=== PATIENT | female | born 1990 | race African-American/Black ===

== ENCOUNTER 2024-11-13 20:56 | Emergency (ER) | payer BC ==
[2024-11-13] MEDS ORDERED: NA CHLORIDE 0.9% 2,000 ML ONE (21:46)
[2024-11-13] MEDS ORDERED: ONDANSETRON 4 MG/2 ML VIAL ONE (21:47)
[2024-11-13] MEDS ORDERED: ACETAMINOPHEN 500 MG TAB ONE (21:47)
[2024-11-13] MEDS ORDERED: KETOROLAC 30 MG/ML INJ ONE (21:47)
[2024-11-13] MEDS ORDERED: FAMOTIDINE 20 MG/2 ML VIAL IV ONE (21:48)
--- NOTE | 2024-11-13 22:00 | RAD REPORT ---
EXAM: Chest Single View HISTORY: 34 years Female FEVER COMPARISON: No prior exams FINDINGS: LUNGS/PLEURA: The lungs are clear. No pleural effusions or pneumothorax. No pulmonary edema. CARDIAC/MEDIASTINUM: The cardiac silhouette is within normal limits. UPPER ABDOMEN: No significant abnormality. BONES: No acute abnormality. LINES/TUBES/OTHER: N/A IMPRESSION: No evidence of acute cardiopulmonary disease.
[2024-11-13 22:29] LABS: Absolute Lymphocytes (CBC) 0.2 K/uL (0.7-4.9); Hematocrit 33.0 % (36.0-45.0); Hemoglobin 10.5 g/dL (12.0-15.0); MCH 22.3 pg (27.0-35.0); MCHC 31.9 g/dL (32.0-36.0); MCV 69.9 fL (80-100); MPV 7.7 fL (7.6-11.3); Nucleated RBC Absolute Count 0.0 (0-0); Nucleated Red Blood Cells % 0.1 % (0-0); RBC Red Blood Cell Count 4.72 M/uL (3.86-4.86); White Blood Count 3.00 thou/uL (4.3-10.9)
[2024-11-13 22:36] LABS: Sqamous Epithelial <5 /HPF (None Seen); Urine Culture Reflex Order NOT NEEDED; Urine Microscopic Reflex YN ORDER UMIC
[2024-11-13 22:45] LABS: Influenza A Ag Negative; Influenza B Ag Negative; SARS-CoV-2 Antigen Rapid Res Negative (Negative)
[2024-11-13 22:47] LABS: ALT/SGPT 24.0 U/L (13-56); AST/SGOT 11.0 U/L (15-37); Albumin 3.6 g/dL (3.4-5.0); Albumin/Globulin Ratio 1.1 (1.1-1.8); Alkaline Phosphatase 71.0 U/L (45-117); Anion Gap 9.7 mEq/L (5.0-15.0); BUN Blood Urea Nitrogen 10.0 mg/dL (7-18); Globulin 3.4 g/dL (2.3-3.5); Glucose Level 107.0 mg/dL (74-106); Lipase 40.0 U/L (13-75); Potassium 3.7 mEq/L (3.5-5.1)
--- NOTE | 2024-11-13 23:51 | EDPHYS ---
Physician Documentation [facility] Name: Amanda Schulte Age: 34 yrs Sex: Female : 1990 Arrival Date: 11/13/2024 Time: 20:56 Bed 6 Private MD: ED Physician Antonio Barnett HPI: 11/13 23:49 This 34 yrs old Black Female presents to ER via Ambulatory with complaints of Headache, sp4 BODYACHES, Leg Pain. 11/14 19:57 Patient presents with complaint of bodyaches, fever, feeling unwell, generalized sp4 weakness. 19:57 Reports associated headache.. 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 - Infectious Disease History:: Denies. - Social history:: Smoking status: Patient denies any tobacco usage or history of. Patient/guardian denies using alcohol, street drugs. - Family history:: not pertinent. ROS: 11/14 19:57 Constitutional: Positive for fever, chills, positive body aches, positive for sp4 generalized weakness and fatigue., Positive for headache All other systems are negative, Exam: 19:57 Constitutional: This is a well developed, well nourished patient who is awake, alert, sp4 and in no acute distress. Head/Face: Normocephalic, atraumatic. Eyes: Pupils equal round and reactive to light, extra-ocular motions intact. Lids and lashes normal. Conjunctiva and sclera are not injected. Cornea within normal limits. Periorbital areas with no swelling, redness, or edema. ENT: Nares patent. No nasal discharge, no septal abnormalities noted. Tympanic membranes are normal and external auditory canals are clear. Oropharynx with no redness, swelling, or masses, exudates, or evidence of obstruction, uvula midline. Mucous membranes moist. Neck: Trachea midline, no thyromegaly or masses palpated, and no cervical lymphadenopathy. Supple, full range of motion without nuchal rigidity, or vertebral point tenderness. Chest/axilla: Normal chest wall appearance and motion. Nontender with no deformity. No lesions are appreciated. Cardiovascular: Regular rate and rhythm with a normal S1 and S2. No gallops, murmurs, or rubs. No pulse deficits. Respiratory: Lungs have equal breath sounds bilaterally, clear to auscultation and percussion. No rales, rhonchi or wheezes noted. No increased work of breathing, no retractions or nasal flaring. Abdomen/GI: Soft, with normal bowel sounds. No distension or tympany. No guarding or rebound. No evidence of tenderness throughout. Back: No spinal tenderness. No costovertebral tenderness. Skin: Warm, dry with normal turgor. Normal color with no rashes, no lesions, and no evidence of cellulitis. MS/ Extremity: Pulses equal, no cyanosis. Neurovascular intact. Full, normal range of motion. Neuro: Awake and alert, GCS 15, oriented to person, place, time, and situation. Cranial nerves II-XII grossly intact. Motor strength 5/5 in all extremities. Sensory grossly intact. Psych: Awake, alert, with orientation to person, place and time. Behavior, mood, and affect are within normal limits Vital Signs: 11/13 21:18 BP 129 / 89; Pulse 111; Resp 17 S; Temp 102.6(O); Pulse Ox 99% on R/A; Weight 104.33 kg lg3 (R); Height 5 ft. 4 in. (R); 22:02 BP 129 / 85; Pulse 98; Resp 19; Pulse Ox 100% on R/A; kd3 23:30 BP 120 / 77; Pulse 80; Resp 16; Pulse Ox 98% on R/A; cc6 21:18 Body Mass Index 39.48 (104.33 kg, 162.56 cm) lg3 Milton Coma Score: 11/14 19:57 Eye Response: spontaneous(4). Motor Response: obeys commands(6). Verbal Response: sp4 oriented(5). Total: 15. 19:59 Eye Response: spontaneous(4). Motor Response: obeys commands(6). Verbal Response: sp4 oriented(5). Total: 15. MDM: 11/13 21:17 Medical Screening Exam initiated sp4 11/14 19:59 Differential diagnosis: cluster headache, migraine, tension headache, vasomotor sp4 headache, Acute viral illness. Data reviewed: vital signs, nurses notes, old medical records, lab test result(s). Consideration of Admission/Observation Escalation of care including admission/observation considered. 11/13 21:17 Order name: COVID-19 Ag + Flu A+B Ag; Complete Time: 23:39 sp4 11/13 21:17 Order name: CBC with Diff; Complete Time: 23:39 sp4 11/13 21:17 Order name: CMP; Complete Time: 23:39 sp4 11/13 21:17 Order name: Lipase; Complete Time: 23:39 sp4 11/13 21:17 Order name: UA Rfx Raman Cult if indicated; Complete Time: 23:39 sp4 11/13 21:17 Order name: Test, Urine; Complete Time: 23:39 sp4 11/13 21:39 Order name: CRP; Complete Time: 23:39 sp4 11/13 21:39 Order name: Chest Single View XRAY; Complete Time: 23:39 sp4 11/13 21:17 Order name: IV Saline Lock; Complete Time: 22:01 sp4 11/13 21:17 Order name: Labs collected and sent; Complete Time: 22:01 sp4 Administered Medications: 11/13 22:02 Drug: Famotidine IVP 20 mg IVP once; dilute with 10 mL 0.9% NaCl; give over 2 minutes kd3 Route: IVP; Site: right antecubital; 11/14 00:23 Follow up: Response: No adverse reaction [facility] 11/13 22:02 Drug: TORadol - Ketorolac IVP 30 mg IVP once Route: IVP; Site: right antecubital; kd3 11/14 00:23 Follow up: Response: No adverse reaction [facility] 11/13 22:02 Drug: Ondansetron IVP 4 mg IVP once; over 2 minutes Route: IVP; Site: right antecubital;kd3 11/14 00:23 Follow up: Response: No adverse reaction [facility] 11/13 22:02 Drug: NS 0.9% IV 1000 ml IV at 1 bolus Per protocol; to be given as a bolus over 60 kd3 minutes Route: IV; Rate: 1 bolus; Site: right antecubital; 11/14 00:27 Follow up: Response: No adverse reaction; IV Status: Completed infusion; IV Intake: cc6 1000ml 11/13 22:02 Drug: NS 0.9% IV 1000 ml IV at 1000 ml once; to be given as a bolus over 60 minutes kd3 Route: IV; Rate: 1000 ml; Site: right antecubital; 11/14 00:26 Follow up: Response: No adverse reaction; IV Status: Completed infusion; IV Intake: cc6 1000ml 11/13 22:02 Drug: Acetaminophen PO 1000 mg PO once Route: PO; kd3 11/14 00:23 Follow up: Response: No adverse reaction cc6 00:22 Not Given (Patient Refused): acetaminophen-codeine(300 mg-30 mg) 2 tabs PO once; RASS cc6 on ADMIN: Combtv4, Very Agttd3, Agttd2, Rstlss1, AlertClm0, Drwsy-1, Lt Sdtn-2, Mod Sdtn-3, Dp Sdtn-4, UnArsble-5 00:22 Not Given (Patient Refused): [id number] mg PO once cc6 Disposition: 20:00 Chart complete. sp4 Disposition Summary: 11/13/24 23:50 Discharge Ordered Problem: new sp4 Symptoms: have improved sp4 Condition: Stable sp4 Diagnosis - Acute systemic viral illness, acute fever sp4 Followup: sp4 - With: Private Physician - When: 7 - 10 days - Reason: Recheck today's complaints Discharge Instructions: - Discharge Summary Sheet sp4 - Viral Illness, Adult sp4 Forms: - Patient Portal Instructions sp4 Prescriptions: - dextromethorphan-guaifenesin 20-400 mg Oral tablet - take 1 tablet ORAL route every 4 hours as needed for cough; 60 tablet; Refills: sp4 0, Product Selection Permitted - Ibuprofen 800 mg Oral Tablet - take 1 tablet ORAL route every 8 hours As needed take with food; 30 tablet; sp4 Refills: 0, Product Selection Permitted - ondansetron 8 mg Oral Tablet,disintegrating - take 1 tablet ORAL route every 8 hours; 30 tablet; Refills: 0, Product sp4 Selection Permitted Signatures: Dispatcher [employer] Argelia Caban RN RN [id number] Aura Haque RN RN kd3 Antonio Barnett MD MD sp4 Piper Marquez RN cc6 Corrections: (The following items were deleted from the chart) 11/13 21:18 21:18 CBC+H.LAB.BRZ ordered. EDMS EDMS 21:18 21:18 COMPREHENSIVE METABOLIC PANEL+C.LAB.BRZ ordered. EDMS EDMS 21:18 21:18 LIPASE+C.LAB.BRZ ordered. EDMS EDMS :18 21:18 UA Rfx Raman Cult if indicated+U.LAB.BRZ ordered. EDMS EDMS 21:18 21:18 Test, Urine+UC.LAB.BRZ ordered. EDMS EDMS
--- NOTE | 2024-11-13 23:51 | ER ---
Nurse's Notes [facility] Name: Amanda Schulte Age: 34 yrs Sex: Female : 1990 Arrival Date: 11/13/2024 Time: 20:56 Bed 6 Private MD: Diagnosis: Acute systemic viral illness, acute fever Presentation: 11/13 21:18 Chief complaint: Patient states: body aches, chills, headaches beginning yesterday. lg3 Coronavirus screen: Client denies travel out of the [place] in the last 14 days. Client presents with at least one sign or symptom that may indicate coronavirus-19. Standard/surgical mask placed on the client. Ebola Screen: No symptoms or risks identified at this time. Initial Sepsis Screen: Does the patient meet any 2 criteria? Temp <36.0*C (96.8*F)) or > 38.3*C (100.9*F). HR > 90 bpm. Yes Does the patient have a suspected source of infection? No. Patient's initial sepsis screen is negative. If YES to both, name of provider notified: Antonio Barnett MD. Risk Assessment: Do you want to hurt yourself or someone else? Patient reports no desire to harm self or others. Onset of symptoms was November 12, 2024. 21:18 Method Of Arrival: Ambulatory lg3 21:18 Acuity: LUKASZ 3 lg3 Triage Assessment: 21:20 Headache History: Denies prior headaches. General: Appears in no apparent distress. lg3 uncomfortable, Behavior is calm, cooperative. Pain: Complains of pain in head Pain currently is 5 out of 10 on a pain scale. Pain began 1 day ago. Also complains of no other associated symptoms. EENT: No deficits noted. No signs and/or symptoms were reported regarding the EENT system. Neuro: No deficits noted. [place] Agitation-Sedation Scale (RASS): 0 - Alert and Calm Level of Consciousness is awake, alert, obeys commands, Oriented to person, place, time, situation, Reports headache weakness. Cardiovascular: No deficits noted. Denies chest pain, shortness of breath, Capillary refill < 3 seconds Clubbing of nail beds is absent JVD is absent Patient's skin is warm and dry. Respiratory: No deficits noted. Airway is patent Respiratory effort is even, unlabored, Respiratory pattern is regular, symmetrical. GI: No deficits noted. No signs and/or symptoms were reported involving the gastrointestinal system. Abdomen is round non-distended, obese. : No signs and/or symptoms were reported regarding the genitourinary system. Derm: No deficits noted. No signs and/or symptoms reported regarding the dermatologic system. Skin is intact, is healthy with good turgor, Skin is dry, Skin is normal, Skin temperature is warm. Musculoskeletal: No deficits noted. Circulation, motion, and sensation intact. Range of motion: intact in all extremities. 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 - Infectious Disease History:: Denies. - Social history:: Smoking status: Patient denies any tobacco usage or history of. Patient/guardian denies using alcohol, street drugs. - Family history:: not pertinent. Screenin:22 [facility] ED Fall Risk Assessment (Adult) History of falling in the last 3 months, lg3 including since admission No falls in past 3 months (0 pts) Confusion or Disorientation No (0 pts) Intoxicated or Sedated No (0 pts) Impaired Gait No (0 pts) Mobility Assist Device Used No (0 pt) Altered Elimination No (0 pt) Score/Fall Risk Level 0 - 2 = Low Risk Oriented to surroundings, Maintained a safe environment, Educated pt \T\ family on fall prevention, incl call for assistance when getting out of bed, Assessed \T\ reinforced patient's understanding of fall precautions. Abuse screen: Denies threats or abuse. Denies injuries from another. Nutritional screening: No deficits noted. Tuberculosis screening: No symptoms or risk factors identified. Assessment: 21:22 General: see triage assessment. Pain: Complains of pain in head. lg3 22:09 Reassessment: Patient and/or family updated on plan of care and expected duration. Pain cc6 level reassessed. Patient is alert, oriented x 3, equal unlabored respirations, skin warm/dry/pink. 23:30 Reassessment: Patient and/or family updated on plan of care and expected duration. Pain cc6 level reassessed. Patient is alert, oriented x 3, equal unlabored respirations, skin warm/dry/pink. Vital Signs: 21:18 BP 129 / 89; Pulse 111; Resp 17 S; Temp 102.6(O); Pulse Ox 99% on R/A; Weight 104.33 kg lg3 (R); Height 5 ft. 4 in. (R); 22:02 BP 129 / 85; Pulse 98; Resp 19; Pulse Ox 100% on R/A; kd3 23:30 BP 120 / 77; Pulse 80; Resp 16; Pulse Ox 98% on R/A; cc6 21:18 Body Mass Index 39.48 (104.33 kg, 162.56 cm) lg3 Milton Coma Score: 11/14 19:57 Eye Response: spontaneous(4). Motor Response: obeys commands(6). Verbal Response: sp4 oriented(5). Total: 15. 19:59 Eye Response: spontaneous(4). Motor Response: obeys commands(6). Verbal Response: sp4 oriented(5). Total: 15. ED Course: 11/13 21:01 Patient arrived in ED. gm2 21:16 Antonio Barnett MD is Attending Physician. sp4 21:20 Triage completed. lg3 21:20 Arm band placed on right wrist. lg3 21:22 Patient has correct armband on for positive identification. Family accompanied patient. lg3 21:29 Aura Haque, RN is Primary Nurse. kd3 21:58 Chest Single View XRAY In Process Unspecified. EDMS 22:01 COVID-19 Ag + Flu A+B Ag Sent. kd3 22:01 Lipase Sent. kd3 22:01 CMP Sent. kd3 22:01 CBC with Diff Sent. kd3 22:01 No provider procedures requiring assistance completed. Initial lab(s) drawn, by ma, kd3 sent to lab. Urine collected: clean catch specimen, clear, supriya colored. Inserted saline lock: 20 gauge in right antecubital area, using aseptic technique. Blood collected. Flushed with 10 mL NS. 22:02 Test, Urine Sent. kd3 22:02 UA Rfx Raman Cult if indicated Sent. kd3 11/14 00:26 Provided Education on: medication usage. cc6 00:26 IV discontinued, intact, bleeding controlled, No redness/swelling at site. Pressure cc6 dressing applied. Administered Medications: 11/13 22:02 Drug: Famotidine IVP 20 mg IVP once; dilute with 10 mL 0.9% NaCl; give over 2 minutes kd3 Route: IVP; Site: right antecubital; 11/15 99:23 Follow up: Response: No adverse reaction cc6 11/13 22:02 Drug: TORadol - Ketorolac IVP 30 mg IVP once Route: IVP; Site: right antecubital; kd3 11/15 99:23 Follow up: Response: No adverse reaction cc6 11/13 22:02 Drug: Ondansetron IVP 4 mg IVP once; over 2 minutes Route: IVP; Site: right antecubital;kd3 11/15 99:23 Follow up: Response: No adverse reaction cc6 11/13 22:02 Drug: NS 0.9% IV 1000 ml IV at 1 bolus Per protocol; to be given as a bolus over 60 kd3 minutes Route: IV; Rate: 1 bolus; Site: right antecubital; 11/14 00:27 Follow up: Response: No adverse reaction; IV Status: Completed infusion; IV Intake: cc6 1000ml 11/13 22:02 Drug: NS 0.9% IV 1000 ml IV at 1000 ml once; to be given as a bolus over 60 minutes kd3 Route: IV; Rate: 1000 ml; Site: right antecubital; 11/15 99: Follow up: Response: No adverse reaction; IV Status: Completed infusion; IV Intake: cc6 1000ml 11/13 22:02 Drug: Acetaminophen PO 1000 mg PO once Route: PO; kd3 11/14 00:23 Follow up: Response: No adverse reaction cc6 00:22 Not Given (Patient Refused): acetaminophen-codeine(300 mg-30 mg) 2 tabs PO once; RASS cc6 on ADMIN: Combtv4, Very Agttd3, Agttd2, Rstlss1, AlertClm0, Drwsy-1, Lt Sdtn-2, Mod Sdtn-3, Dp Sdtn-4, UnArsble-5 00:22 Not Given (Patient Refused): [id number] mg PO once cc6 Medication: 11/13 21:22 VIS not applicable for this client. lg3 Intake: 11/14 00:26 IV: 1000ml; Total: 1000ml. cc6 00:27 IV: 1000ml; Total: 2000ml. cc6 Outcome: 11/13 23:50 Discharge ordered by . dustin 11/14 00:25 Discharged to home ambulatory, cc6 Condition: stable Discharge instructions given to patient, Instructed on discharge instructions, follow up and referral plans. medication usage, Demonstrated understanding of instructions, follow-up care, medications, Prescriptions given X 3, 00:26 Patient left the ED. cc6 Signatures: Dispatcher [employer] EDMS Argelia Manzo, RN RN lg3 Aura Haque, RN RN kd3 Antonio Barnett MD MD sp4 Taylor Pope gm Piper Marquez, RN RN cc6
[2024-11-14 01:04] VITALS: TEMP 102.6
[2024-11-14 01:07] VITALS: BP 120/77; O2SAT 98
== END 2024-11-14 00:26 | disposition home or self-care (01) ==
LOC: ER 20:56
DX: B34.9 Viral infection, unspecified (principal); Z11.52 Encounter for screening for COVID-19
CPT/HCPCS: 96361; 85025; 81001; 36415; 81025; 83690; 80053; 86140; 71045; 96375; 96374; 99284; 87428; J2405; J7030; J1885